=== PATIENT | male | born 1990 | race Caucasian/White ===

== ENCOUNTER 2019-04-11 11:25 | Emergency (ER) | payer MEDICAID ==
[~2019-04-11] VITALS: Ht 172.7 cm; Wt 88.0 kg
[2019-04-11] MEDS ORDERED: SODIUM CHLORIDE 0.9% 1,000 ML IV ONE (12:39)
[2019-04-11] MEDS ORDERED: ONDANSETRON HCL 4MG/2ML INJ IV STA (12:39)
[2019-04-11] MEDS ORDERED: FOLIC ACID 1 MG, THIAMINE HCL 100 MG, MVI, ADULT NO.1 10 ML in DEXTROSE 5% WATER 1,000 ML IV ONE ×4 (12:45)
[2019-04-11 13:33] LABS: EOSINOPHILS % 0.1 % (0.0-5.0); HEMATOCRIT. 43.2 % (42.0-52.0); LYMPHOCYTES % 25.4 % (20.0-50.0); MEAN CORPUSCULAR HEMOGLOBIN 32.4 pg (28.0-32.0); MEAN CORPUSCULAR VOLUME 93.4 fL (80.0-94.0); MEAN PLATELET VOLUME 7.9 fl (7.4-10.4); MONOCYTES % 10.1 % (2.0-8.0); NEUTROPHILS % 63.4 % (40.0-76.0); PLATELET 139 x1000/uL (130-400); RED BLOOD CELL COUNT 4.63 mill/uL (4.7-6.1); RED CELL DISTRIBUTION WIDTH 13.5 % (11.6-14.6)
[2019-04-11 13:48] LABS: CHLORIDE 103 mEq/L (98-107)
[2019-04-11 13:52] LABS: ETHANOL BLOOD 34 mg/dL
[2019-04-11] MEDS ORDERED: MAGNESIUM 2 G PREMIX 50 ML IV ONE (14:15)
[2019-04-11] MEDS ORDERED: KCL 10MEQ/50ML PREMIX 50 ML IV ONE (14:15)
[2019-04-11 14:39] LABS: *AMPHETAMINES SCREEN URINE NEGATIVE (NEGATIVE); *BARBITURATES SCREEN URINE NEGATIVE (NEGATIVE); *BENZODIAZEPINES SCREEN URINE PRESUMTIVE POSITIVE (NEGATIVE)
[2019-04-11 14:40] LABS: *COCAINE SCREEN URINE NEGATIVE (NEGATIVE); CANNABINOID URINE SCREEN PRESUMTIVE POSITIVE (NEGATIVE); METHADONE URINE SCREEN NEGATIVE (NEGATIVE); OPIATES URINE SCREEN NEGATIVE (NEGATIVE); PHENCYCLIDINE URINE SCREEN NEGATIVE (NEGATIVE)
[2019-04-11] MEDS ORDERED: LORAZEPAM 2MG/ML CPJ IV ONE (15:15)
[2019-04-11] MEDS ORDERED: LORAZEPAM 1MG TABLET PO ONE (15:15)
[2019-04-11 15:25] VITALS: BP 151/85
== END 2019-04-11 15:25 | disposition left against medical advice (07) ==
LOC: ER 11:25
DX: F10.239 Alcohol dependence with withdrawal, unspecified (principal); E87.6 Hypokalemia; E83.42 Hypomagnesemia; Y90.1 Blood alcohol level of 20-39 mg/100 ml
CPT/HCPCS: 36415; 71045; 80053; 80305; 80320; 83735; 85025; 93005; 99284; J2405; J3411; J3480; J3490; J7030; J7070; Z7610; G0480

== ENCOUNTER 2020-10-08 19:37 | Emergency (ER) | payer MEDICAID ==
[~2020-10-08] VITALS: Ht 170.2 cm; Wt 104.3 kg
[2020-10-08] MEDS ORDERED: BACITRACIN ZINC OINT UDPKT TOP ONE (21:30)
[2020-10-08] MEDS ORDERED: TETANUS, DIPHTHERIA, PERTUSSIS VAC/PF 0.5ML (>7YR OLD) IM ONE (21:30)
[2020-10-08 21:35] LABS: BASOPHILS % 0.8 % (0.0-2.0); EOSINOPHILS % 0.3 % (0.0-5.0); HEMATOCRIT. 50.7 % (42.0-52.0); HEMOGLOBIN. 16.8 g/dL (14.0-18.0); LYMPHOCYTES % 32.2 % (20.0-50.0); MEAN CORPUSCULAR HEMOGLOBIN 31.8 pg (28.0-32.0); MEAN CORPUSCULAR VOLUME 96.1 fL (80.0-94.0); MEAN PLATELET VOLUME 8.9 fl (7.4-10.4); MONOCYTES % 10.1 % (2.0-8.0); NEUTROPHILS % 56.6 % (40.0-76.0); PLATELET 195 x1000/uL (130-400); RED BLOOD CELL COUNT 5.27 mill/uL (4.7-6.1); RED CELL DISTRIBUTION WIDTH 14.8 % (11.6-14.6)
[2020-10-08 21:40] LABS: CHLORIDE 114 mEq/L (98-107)
[2020-10-09 02:10] VITALS: BP 138/96
== END 2020-10-09 02:15 | disposition home or self-care (01) ==
LOC: ER 19:37
DX: F10.129 Alcohol abuse with intoxication, unspecified (principal); Y90.0 Blood alcohol level of less than 20 mg/100 ml; M25.521 Pain in right elbow
CPT/HCPCS: 12001; 36415; 70450; 73060; 73080; 73090; 80053; 85025; 90471; 90715; 99285; Z7610